=== PATIENT | female | born 2000 | race African-American/Black ===

== ENCOUNTER 2022-06-10 08:00 | Outpatient (CLI) | payer OTHER ==
[2022-06-10 23:17] LABS: BACTERIAL VAGINOSIS DNA POSITIVE (NEGATIVE); CANDIDA GLABRATA DNA NEGATIVE (NEGATIVE); CANDIDA GROUP DNA NEGATIVE (NEGATIVE); CANDIDA KRUSEI DNA NEGATIVE (NEGATIVE); TRICHOMONAS VAGINALIS DNA NEGATIVE (NEGATIVE)
[2022-06-10 23:59] LABS: CHLAMYDIA TRACHOMATIS DNA NEGATIVE (NEGATIVE); NEISSERIA GONORRHOEAE DNA NEGATIVE (NEGATIVE)
[2022-06-12 04:08] LABS: HCV AB 0.5 s/co ratio (0.0-0.9)
[2022-06-12 06:09] LABS: RPR Non Reactive (Non Reactive)
[2022-06-13 00:07] LABS: HIV SCREEN 4TH GENERATION Non Reactive (Non Reactive)
== END 2022-06-10 23:59 | disposition home or self-care (01) ==
LOC: LAB.N 08:00
PROVIDERS: ATTEND Physician Assistant Medical
DX: N76.0 Acute vaginitis (principal)
CPT/HCPCS: 36415; 81514; 86592; 86803; 87389; 87491; 87591; 87661

== ENCOUNTER 2023-07-07 08:00 | Outpatient (CLI) | payer OTHER ==
[2023-07-07 23:47] LABS: CHLAMYDIA TRACHOMATIS DNA NEGATIVE (NEGATIVE); NEISSERIA GONORRHOEAE DNA NEGATIVE (NEGATIVE); TRICHOMONAS VAGINALIS DNA NEGATIVE (NEGATIVE)
[2023-07-09 06:10] LABS: RPR Non Reactive (Non Reactive)
[2023-07-09 07:11] LABS: HCV AB Non Reactive (Non Reactive); HIV SCREEN 4TH GENERATION Non Reactive (Non Reactive)
== END 2023-07-07 23:59 | disposition home or self-care (01) ==
LOC: LAB.N 08:00
PROVIDERS: ATTEND Physician Assistant Medical
DX: Z11.3 Encounter for screening for infections with a predominantly sexual mode of transmission (principal)
CPT/HCPCS: 36415; 86592; 86803; 87389; 87491; 87591; 87661

== ENCOUNTER 2023-08-16 07:21 | Outpatient (CLI) | payer OTHER | END 2023-08-16 23:59 | disposition critical access hospital (66) | LOC: EMS 07:21 | DX: R59.0 Localized enlarged lymph nodes (principal); R13.10 Dysphagia, unspecified; R11.10 Vomiting, unspecified; R53.81 Other malaise | CPT/HCPCS: A0425; A0429 ==

== ENCOUNTER 2023-08-16 07:39 | Emergency (ER) | payer OTHER ==
[2023-08-16] MEDS ORDERED: SODIUM CHLORIDE 0.9% 1,000 ML IV STA (07:54)
[2023-08-16] MEDS ORDERED: ONDANSETRON 4 MG/2 ML VIAL IVP STA (07:54)
[2023-08-16] MEDS ORDERED: DEXAMETHASONE 10 MG/ML VIAL IVP STA (07:54)
[2023-08-16] MEDS ORDERED: KETOROLAC 15 MG/ML VIAL IVP STA (07:54)
[2023-08-16] MEDS ORDERED: HYDROmorphone 0.5 MG/0.5 ML SYRINGE IVP STA (07:55)
[2023-08-16] MEDS ORDERED: cefTRIAXone 1 GM VIAL IVP STA (07:56)
[2023-08-16 08:28] LABS: BASOPHILS % (AUTO) 0.1 %; HCT - HEMATOCRIT 34.8 % (37.0-47.0); HGB - HEMOGLOBIN 11.4 g/dL (12.0-16.0); LYMPHOCYTES # (AUTO) 0.4 10^3/uL (1.5-3.5); LYMPHOCYTES % (AUTO) 2.6 %; MEAN CORPUSCULAR HEMOGLOBIN 25.4 pg (27.0-31.0); MEAN CORPUSCULAR HGB CONC 32.8 g/dL (32.0-36.0); MEAN CORPUSCULAR VOLUME 77.7 fL (81.0-99.0); MEAN PLATELET VOLUME 10.4 fL (7.9-10.8); MONOCYTES % (AUTO) 6.2 %; NEUTROPHILS # (AUTO) 14.9 10^3/uL (1.5-6.6); NEUTROPHILS % (AUTO) 90.7 %; PLT - PLATELET COUNT 255 10^3/uL (130-450); RED BLOOD COUNT 4.48 10^6/uL (4.20-5.40); RED CELL DISTRIBUTION WIDTH 13.6 % (12.0-15.0); WHITE BLOOD COUNT 16.4 x10^3/uL (4.8-10.8)
[2023-08-16 08:34] LABS: RAPID STREP SCREEN Negative (Negative)
[2023-08-16 08:50] LABS: ALBUMIN 4.2 g/dL (3.2-5.5)
[2023-08-16 08:53] LABS: ALBUMIN/GLOBULIN RATIO 1.4 (1.0-2.2); ALKALINE PHOSPHATASE 58 IU/L (42-121); ALT ALANINE AMINOTRANSFERASE 11 IU/L (10-60); AST ASPARTATE AMINOTRANSFERASE 15 IU/L (10-42); BILIRUBIN,TOTAL 1.2 mg/dL (0.2-1.0); BUN - BLOOD UREA NITROGEN 8 mg/dL (6-20); CARBON DIOXIDE - CO2 23 mmol/L (21-32); CHLORIDE 101 mmol/L (101-111); CREATININE 0.7 mg/dL (0.6-1.3); GFR - MDRD 124 (>89); GLUCOSE 116 mg/dL (74-104); LIPASE < 10 U/L (11-82); POTASSIUM 3.9 mmol/L (3.5-4.5); SODIUM 132 mmol/L (135-145); TOTAL PROTEIN 7.2 g/dL (6.4-8.9)
[2023-08-16 09:09] LABS: B. PARAPERTUSSIS- RESP PCR PAN NOT DETECTED; B. PERTUSSIS- RESP PCR PANEL NOT DETECTED; C. PNEUMONIAE- RESP PCR PANEL NOT DETECTED; CORONAVIRUS 229E-RESP PCR NOT DETECTED; CORONAVIRUS HKU1-RESP PCR NOT DETECTED; CORONAVIRUS NL63-RESP PCR NOT DETECTED; CORONAVIRUS OC43-RESP PCR NOT DETECTED; HUMAN METAPNEUMOVIRUS NOT DETECTED; INFLUENZA A- RESP PCR PANEL NOT DETECTED; INFLUENZA B - RESP PCR PANEL NOT DETECTED; M. PNEUMONIAE- RESP PCR PANEL NOT DETECTED; PARAINFLUENZA VIRUS 1 NOT DETECTED; PARAINFLUENZA VIRUS 2 NOT DETECTED; PARAINFLUENZA VIRUS 3 NOT DETECTED; PARAINFLUENZA VIRUS 4 NOT DETECTED; RHINOVIRUS/ENTEROVIRUS NOT DETECTED; RSV- RESP PCR PANEL NOT DETECTED; SARS-CoV-2 -RESP PCR PANEL NOT DETECTED
--- NOTE | 2023-08-16 10:15 | ED Physician Documentation ---
PD HPI URI - Stated complaint Stated Complaint: ALLERGIC REACTION - Chief complaint Chief Complaint: Abd Pain - History obtained from History obtained from: Patient - History of Present Illness Timing - onset: Yesterday Timing duration: Days (2) Timing details: Abrupt onset, Still present Associated symptoms: Fever, Chills, Sore throat, Swollen nodes, Other (mid abd cramping pain). No: Nasal congestion, Rhinorrhea, Dry cough, Productive cough Contributing factors: No: Sick contact, Immunocompromised Similar symptoms before: Has not had sx before Review of Systems Constitutional: reports: Chills, Myalgias Skin: denies: Rash, Lesions Neurologic: reports: Generalized weakness. denies: Near syncope PD PAST MEDICAL HISTORY - Past Medical History Past Medical History: No - Past Surgical History Past Surgical History: No - Present Medications Home Medications: Ambulatory Orders Medication Instructions Recorded Confirmed HYDROcod/ACETAM 5/325 [Cyclone 5/325] 1 ea PO Q6H PRN #10 tablet 08/16/23 Ondansetron Odt [Zofran] 4 mg TL Q6H PRN #10 tablet 08/16/23 cephALEXin [Keflex] 500 mg PO TID #20 cap 08/16/23 dexAMETHasone [Decadron] 4 mg PO DAILY #5 tablet 08/16/23 - Allergies Allergies/Adverse Reactions: Allergies Allergy/AdvReac Type Severity Reaction Status Date / Time No Known Drug Allergies Allergy Verified 08/16/23 07:46 - Social History Does the pt smoke?: No Smoking Status: Never smoker PD ED PE NORMAL - Vitals Vital signs reviewed: Yes - General General: Alert and oriented X 3, Well developed/nourished, Other (appears in pain with swallowing. Tachycardic. dry lips. Mild distortion/hoarseness of voice. ) - HEENT HEENT: Dentition benign. No: Pharynx benign (tonsils area with swelling, redness, some exudate more to right. There is edema/swelling noted right peritonsillar area laterally without bulging/protrusion. ) - Neck Neck: Supple, no meningeal sign - Cardiac Cardiac: No murmur. No: RRR (regular but tachycardic.) - Respiratory Respiratory: No respiratory distress, Clear bilaterally - Abdomen Abdomen: Soft, Non distended, No organomegaly, Other (mild tender mid abd without guarding nor percussion tednerness. ) - Derm Derm: Normal color, Warm and dry - Extremities Extremities: No edema, No calf tenderness / cord Results - Vitals Vitals: Vital Signs - 24 hr 08/16/23 08/16/23 07:44 11:05 Temperature 37.3 C 36.5 C Heart Rate 108 H 88 Respiratory 15 18 Rate Blood Pressure 125/64 106/54 L O2 Saturation 98 97 - Labs Labs: Laboratory Tests 08/16/23 08/16/23 08/16/23 07:51 07:51 08:22 WBC 16.4 H RBC 4.48 Hgb 11.4 L Hct 34.8 L MCV 77.7 L MCH 25.4 L MCHC 32.8 RDW 13.6 Plt Count 255 MPV 10.4 Neut # (Auto) 14.9 H Lymph # (Auto) 0.4 L [place] # (Auto) 1.0 Eos # (Auto) 0.0 Baso # (Auto) 0.0 Absolute Nucleated RBC 0.00 Nucleated RBC % 0.0 Sodium Potassium Chloride Carbon Dioxide Anion Gap BUN Creatinine Estimated GFR (MDRD) Glucose Calcium Total Bilirubin AST ALT Alkaline Phosphatase Total Protein Albumin Globulin Albumin/Globulin Ratio Lipase Nasal Adenovirus (PCR) NOT DETECTED Nasal B. parapertussis DNA (PCR) NOT DETECTED Nasal Coronavir 229E PCR NOT DETECTED Nasal Coronavir HKU1 PCR NOT DETECTED Nasal Coronavir NL63 PCR NOT DETECTED Nasal Coronavir OC43 PCR NOT DETECTED Nasal Enterovir/Rhinovir PCR NOT DETECTED Nasal Influenza B PCR NOT DETECTED Nasal Influenza A PCR NOT DETECTED Nasal Parainfluen 1 PCR NOT DETECTED Nasal Parainfluen 2 PCR NOT DETECTED Nasal Parainfluen 3 PCR NOT DETECTED Nasal Parainfluen 4 PCR NOT DETECTED Nasal RSV (PCR) NOT DETECTED Nasal B.pertussis DNA PCR NOT DETECTED Nasal C.pneumoniae (PCR) NOT DETECTED Ralph Human Metapneumo PCR NOT DETECTED Nasal M.pneumoniae (PCR) NOT DETECTED Nasal SARS-CoV-2 (PCR) NOT DETECTED Group A Strep Rapid Negative 08/16/23 08:22 WBC RBC Hgb Hct MCV MCH MCHC RDW Plt Count MPV Neut # (Auto) Lymph # (Auto) [place] # (Auto) Eos # (Auto) Baso # (Auto) Absolute Nucleated RBC Nucleated RBC % Sodium 132 L Potassium 3.9 Chloride 101 Carbon Dioxide 23 Anion Gap 8.0 BUN 8 Creatinine 0.7 Estimated GFR (MDRD) 124 Glucose 116 H Calcium 9.0 Total Bilirubin 1.2 H AST 15 ALT 11 Alkaline Phosphatase 58 Total Protein 7.2 Albumin 4.2 Globulin 3.0 Albumin/Globulin Ratio 1.4 Lipase < 10 L Nasal Adenovirus (PCR) Nasal B. parapertussis DNA (PCR) Nasal Coronavir 229E PCR Nasal Coronavir HKU1 PCR Nasal Coronavir NL63 PCR Nasal Coronavir OC43 PCR Nasal Enterovir/Rhinovir PCR Nasal Influenza B PCR Nasal Influenza A PCR Nasal Parainfluen 1 PCR Nasal Parainfluen 2 PCR Nasal Parainfluen 3 PCR Nasal Parainfluen 4 PCR Nasal RSV (PCR) Nasal B.pertussis DNA PCR Nasal C.pneumoniae (PCR) Ralph Human Metapneumo PCR Nasal M.pneumoniae (PCR) Nasal SARS-CoV-2 (PCR) Group A Strep Rapid PD Medical Decision Making - ED course Complexity details: re-evaluated patient (she is having decreased pain and also feeling less swelling of throat. Voice is improved and taking sips fluids/water after IV abx/steroids/pain meds. I will treat as peritonsillar cellulitis/presume strep. No anterior neck swelling, just adenopathy. ), considered differential (having sore throat, adenopathy, painful swallowing with swelling, but not URI symptoms in general. Exam c/w tonsillitis with some edema paritonsillar on right. No bulging/abscess noted but some distortion of voice.), d/w patient Departure - Departure Disposition: 01 Home, Self Care Clinical Impression: Acute pharyngitis Qualifiers: Pharyngitis/tonsillitis etiology: unspecified etiology Qualified Code(s): J02.9 - Acute pharyngitis, unspecified Condition: Stable Instructions: ED Strep Pharyngitis Poss Prescriptions: dexAMETHasone [Decadron] 4 mg PO DAILY #5 tablet cephALEXin [Keflex] 500 mg PO TID #20 cap HYDROcod/ACETAM 5/325 [Cyclone 5/325] 1 ea PO Q6H PRN #10 tablet PRN Reason: Pain Ondansetron Odt [Zofran] 4 mg TL Q6H PRN #10 tablet PRN Reason: Nausea / Vomiting Comments: Small frequent fluids to maintain hydration. Tylenol every 4-6 hours if needed for pain. Decadron steroid for inflammation daily for 5 more days. Your viral respiratory panel is negative for the major viruses. Your rapid strep test is negative but the culture will result in a couple of days. This is fairly suspicious for a bacterial infection around the tonsils so I would go with amoxicillin antibiotic as well. Add ibuprofen or naproxen 3 times daily if needed for pain or hydrocodone/acetaminophen if needed for worse pain. I would anticipate improvement through the afternoon and over the next couple of days with resolution by 3 to 5 days. Off work/duty today and tomorrow. Follow-up with your primary care if not improved considerably by Friday or Friday. Return if worse. I sent your prescriptions to your preferred pharmacy. I am prescribing a short course of narcotic pain medication for you. These are potentially dangerous and addictive medications that should be used carefully. These medications may constipate you. Take an [id number] stool softener such as docusate twice daily with plenty of water while taking these medications. If you go 24 hours without a bowel movement, take [id number] MiraLAX, per package instructions. Do not drink or drive while taking these medications. If you received narcotic or sedating medications while in the emergency department do not drive for 24 hours. Store this medication in a safe, secure place and out of reach of children. It is a violation of federal law to give or sell this medication to another person or to use in a manner other than prescribed. The ED will not refill narcotic prescriptions, including prescriptions lost or stolen. You can dispose of unwanted medications at the [facility]'s office or at several pharmacies such as [facility]. Forms: PCP List, Activity restrictions Discharge Date/Time: 08/16/23 11:06
[2023-08-16 11:08] VITALS: BP 106/54; O2SAT 97
== END 2023-08-16 11:06 | disposition home or self-care (01) ==
LOC: EDUNIT# → ED 07:39
DX: J02.9 Acute pharyngitis, unspecified (principal); Z11.52 Encounter for screening for COVID-19
CPT/HCPCS: 36415; 80053; 83690; 85025; 87070; 87430; 87633; 96374; 96375; 99284; 99285; J1170